=== PATIENT | female | born 1995 | race Caucasian/White ===

== ENCOUNTER 2025-01-25 15:15 | Emergency (ER) | payer SELFPAY ==
[2025-01-25 16:35] LABS: Glucose, Urine (Dipstick) Normal (Negative); Leukocyte Negative (Negative); Protein, Urine (Dipstick) Negative (Neg-Trace); Specific Gravity, Urine 1.020 (1.005-1.030)
[2025-01-25 16:45] LABS: Pregnancy Test - Urine (BHCG) Negative (Negative); Pregu Control Background? CLEAR/WHITE (CLR/WHITE); Pregu Control Bar Appear? YES (CONTROL BAR)
[2025-01-25] MEDS ORDERED: Ketorolac Tromethamine 30 MG (1 mL) VIAL ONE (17:02)
[2025-01-25 17:11] LABS: Bacteria/HPF 2+ HPF (None Seen); CAUTI Indications for Culture Pelvic or flank pain; Mucous/LPF 2+ LPF (<2+); RBC/HPF 0-3 HPF (0-3); WBC/HPF 0-3 HPF (0-3)
[2025-01-25 17:13] LABS: Urine Culture Reflex No No
== END 2025-01-25 17:28 | disposition home or self-care (01) ==
LOC: CSHERS 15:15
DX: J10.1 Influenza due to other identified influenza virus with other respiratory manifestations (principal); Z75.3 Unavailability and inaccessibility of health-care facilities
CPT/HCPCS: 71045; 81001; 81025; 87428; 96372; J1885; Q0162